=== PATIENT | female | born 1995 | race Caucasian/White ===

== ENCOUNTER 2018-09-21 19:15 | Inpatient (IN) | payer OTHER ==
[2018-09-21] MEDS: ELECTROLYTE-148 SOLN 1,000 ML IV SCH (19:30)
[2018-09-21 20:55] VITALS: BMI 37.4
[2018-09-21] MEDS ORDERED: TUBERCULIN PPD 5 TU/0.1ML SYRINGE (IN PATIENT USE ONLY) ID ONE (21:00)
[2018-09-21 21:11] LABS: BASO % 0.4 % (0-2.0); EOS % 1.3 % (0-4.5); HEMATOCRIT 35.9 % (32.4-45.2); HEMOGLOBIN 12.2 GM/dL (10.7-15.3); LYMPH % 22.5 % (8-40); MCHC 33.9 g/dl (32.0-36.0); MEAN CELL VOLUME 76.7 fl (80-96); MEAN PLT VOLUME 11.4 fl (7.5-11.1); MONO % 3.6 % (3.8-10.2); NEUT % 72.2 % (42.8-82.8); PLATELET COUNT 180 K/MM3 (134-434); RBC 4.67 M/mm3 (3.60-5.2); WHITE BLOOD COUNT 8.5 K/mm3 (4.0-10.0)
[2018-09-21 21:31] LABS: ANION GAP 11 MMOL/L (8-16); BLOOD UREA NITROGEN 6 mg/dL (7-18); CALCIUM 8.4 mg/dL (8.5-10.1); CHLORIDE 106 mmol/L (98-107); CO2 23 mmol/L (21-32); CREATININE 0.6 mg/dL (0.55-1.3); GLUCOSE,RANDOM 147 mg/dL (74-106); POTASSIUM 4.2 mmol/L (3.5-5.1); SODIUM 139 mmol/L (136-145)
[2018-09-21 21:33] LABS: PROTHROMBIN TIME (PATIENT) 11.8 SEC (9.7-13.0)
[2018-09-21 22:27] LABS: PLATELET ESTIMATE ADEQUATE
[2018-09-21] MEDS ORDERED: AZITHROMYCIN IVPB 1,000 MG in DEXTROSE 5%-WATER - 250 ML IVPB ONE (22:30)
--- NOTE | 2018-09-21 22:31 | HP ---
Past Medical History - Primary Care Physician PCP:: Everett Anthony - Admission Chief Complaint: 23yo P0 with at EGA 40w 0d with GDM o insulin, admitted for labor induction. History of Present Illness: GDM on insulin with good control Obesity Chlamydia (+) in 04/2018- treated. No test of cure available. History Source: Patient, Medical Record Limitations to Obtaining History: No Limitations - Past Medical History [employer]GER [employer] SERVICES: No: Alzheimer's, CVA, Dementia, Migraine, Multiple Sclerosis, Peripheral Neuropathy, Parkinson's, Seizure, Syncope, TIA, Vertigo, Other Cardiovascular: No: AFIB, Aneurysm, Aortic Insufficiency, Aortic Stenosis, CAD, CHF, Deep Vein Thrombosis, HTN, Hyperlipdemia, [place], Mitral Insufficiency, Mitral Stenosis, Murmur, Pulmonary Hypertension, Other Pulmonary: No: Asthma, Bronchitis, Cancer, COPD, O2 Dependent, Pneumonia, Previously Intubated, Pulmonary Embolus, Pulmonary Fibrosis, Sleep Apnea, Other Gastrointestinal: No: Ascites, Cancer, Constipation, Crohn's Disease, Diverticulitis, Diverticulosis, Esophageal Varices, Gastritis, GERD, GI Bleed, Hemorrhoids, Hiatal Hernia, Inflamatory Bowel Disease, Irritable Bowel Disease, Pancreatitis, Peptic Ulcer Disease, Ulcerative Colitis, Other Hepatobiliary: No: Cirrhosis, Cholelithiasis, Cholecystitis, Choledocholithiasis , Hepatitis A, Hepatitis B, Hepatitis C, Other Renal/: No: Renal Failure, Renal Inusuff, BPH, Cancer, Hematuria, Hemodialysis , Neurogenic Bladder, Renal Calculi, UTI, Other Reproductive: No: Ectopic , Endometriosis, Fibroids, PID, Polycystic Ovary Syndrome, Postmenopausal, Other ...: 1 ...Para: 0 ...Term: 0 ...: 0 ...Spon : 0 ...Induced : 0 ...Multiple Gestation: 0 ...LMP: 12/20/17 ... Weeks Gestation by Dates: 40.2 ...EDC by Dates: 09/26/18 ...EDC by Sono: 09/21/18 Heme/Onc: No: Anemia, B12 Deficiency, Bleeding Disorder, Cancer, Current Chemotherapy, Current Radiation Therapy, Hemochromatosis, Hypercoaguable State, Myeloproliferative Synd, Sickle Cell Disease, Sickle Cell Trait, Thrombocytopenia, Other Infectious Disease: Yes: Other (Hx of Chlamydia 04/2018) Psych: No: Addictions, Anxiety, Bipolar, Depression, Panic, Psychosis, Schizophrenia, Other Musculoskeletal: No: Bursitis, Chronic low back pain, Hemiparesis, Hemiplegia, Osteoarthritis, Paraplegia, Other ENT: No: Allergic Rhinitis, Sinusitis, Other Endocrine: No: Reagan's Disease, Fred's Disease, Diabetes Insipidus, Diabetes Mellitus, Hyperparathyroidism, Hyperthyroidism, Hypothyroidism, Osteopenia, SIADH, Other Dermatology: No: Basal Cell, Cellulitis, Eczema, Melanoma, Psoriasis, Squamous Cell, Other - Past Surgical History Past Surgical History: Yes: None Hx Myomectomy: No Hx Transabdominal Cerclage: No - Smoking History Smoking history: Never smoked Have you smoked in the past 12 months: No - Alcohol/Substance Use Hx Alcohol Use: No History of Substance Use: reports: None - Social History Usual Living Arrangement: Yes: With Significant Other ADL: Independent History of Recent Travel: No Home Medications - Allergies Allergies/Adverse Reactions: Allergies Allergy/AdvReac Type Severity Reaction Status Date / Time No Known Allergies Allergy Verified 05/17/15 04:05 - Home Medications Home Medications: Ambulatory Orders Ibuprofen [Motrin] 600 mg PO TID #20 tablet 05/17/15 Sulfamethoxazole/Trimethoprim [Bactrim *Ds*] 1 tab PO BID #14 tablet 05/17/15 Family Disease History - Family Disease History Family History: Unremarkable Review of Systems Findings/Remarks: Well appearing - Review of Systems Constitutional: reports: No Symptoms Eyes: reports: No Symptoms HENT: reports: No Symptoms Neck: reports: No Symptoms Cardiovascular: reports: No Symptoms Respiratory: reports: No Symptoms Gastrointestinal: reports: No Symptoms Genitourinary: reports: No Symptoms Breasts: reports: No Symptoms Reported Musculoskeletal: reports: No Symptoms Integumentary: reports: No Symptoms Neurological: reports: No Symptoms Endocrine: reports: No Symptoms Hematology/Lymphatic: reports: No Symptoms Psychiatric: reports: No Symptoms Pain Intensity: 0 Physical Exam - Maternity Vital Signs: Vital Signs Temperature 97.9 F 09/21/18 19:15 Pulse Rate 88 09/21/18 19:15 Respiratory Rate 20 09/21/18 19:15 Blood Pressure 119/78 09/21/18 19:15 O2 Sat by Pulse Oximetry (%) Constitutional: Yes: No Distress, Calm, Obese Eyes: Yes: WNL, Conjunctiva Clear HENT: Yes: WNL, Atraumatic, Normocephalic Neck: Yes: WNL, Supple, Trachea Midline Cardiovascular: Yes: WNL, Regular Rate and Rhythm Lungs: Clear to auscultation, Normal air movement - Abdominal Exam/OB Fundal Height: 40 Number of Fetuses: Single Presentation: Vertex Contractions: No Heart Rate (range): 140 Heart Rate Location: Midline Category: I Accelerations: Non-Uniform Decelerations: None - Vaginal Exam/OB Vaginal Bleediing: No Speculum Exam: Yes Dilatation (cm): 0 Effacement (%): 0 Amniotic Membrane Status: Intact Station: -4 (Adequate pelvimetry, EFW ~3200g by Marcell's maneuvers.) - Physical Exam Musculoskeletal: Yes: WNL Extremities: Yes: WNL Edema: Yes Edema: LLE: Trace, RLE: Trace Integumentary: Yes: Erythema Deep Tendon Reflex Grade: Normal +2 ...Motor Strength: WNL Psychiatric: Yes: WNL, Alert, Oriented - Labs Lab Results: CBC, BMP 09/21/18 20:45 09/21/18 20:45 Hemorrhage Risk Assessment - Risk Factors Medium Risk Factors: Yes: None High Risk Factors: Yes: None Risk Score: 1 Risk Level: Medium Risk Imaging - Results Ultrasound: Report Reviewed Assessment/Plan 23yo P0 with at EGA 40w2d admitted for labor induction. Pt is not in labor. Fetus with Category I tracing. Adequate gynecoid pelvimetry on exam. We had long discussion re: risks, benefits, and alternatives of labor induction. I explained the options of expectant management awaiting spontaneous labor, induction of labor, and elective section. The risks of uterine tachysystole, distress, uterine rupture, need for emergency C/S, hemorrhage, infection, scarring, etc. were discussed. We also discussed the risks of meconium aspiration, shoulder dystocia, and anesthesia options. The pt requested to proceed with induction. We discussed the alternative methods of induction with Cervidil, Cytotec, Folley ballon, and pitocin. The pt prefers Cervidil followed by pitocin, if needed. I also discussed that the pt has a prior Chlamydia infection but there is no [id number] on record. We discussed the risks of chlamydia infection and vertical transmission to the , infection with risks of blindness, pneumonia, etc. We also discussed the options of discharging the pt to go home and awaiting the results of GC test , the risks of post-term in the setting of GDM, including meconium, increased mortality, etc. I also offered an elective C/S and we discussed the risks of surgery. The pt declined a C/S and prefers to proceed with labor indx. I will treat the pt with Azithromycin 1 gram IVSS now.
[2018-09-21] MEDS ORDERED: DINOPROSTONE 10 MG VAGINAL SUPPOSITORY VG ONE (22:45)
[2018-09-22] MEDS ORDERED: OXYTOCIN 30 UNITS in 0.9% NS 30 UNIT/500 ML INFUS.BAG IVPB ONE (10:24)
[2018-09-22] MEDS: OXYTOCIN 30 UNITS in 0.9% NS 30 UNIT/500 ML INFUS.BAG IVPB SCH (10:30)
[2018-09-22] MEDS ORDERED: PROMETHAZINE HCL 25 MG/1 ML VIAL IVPUSH ONE (10:30)
[2018-09-22] MEDS ORDERED: BUTORPHANOL TARTRATE 1 MG/ML VIAL IVPUSH ONE (10:30)
[2018-09-22] MEDS: ELECTROLYTE-148 SOLN 1,000 ML IV SCH ×2 (11:00→20:35)
--- NOTE | 2018-09-22 14:40 | PN ---
Ante-Partal Exam - Subjective Subjective: Patient reports mild discomfort with contractions Declines offer for contraception Vital Signs: Vital Signs Temperature 97.4 F L 09/22/18 14:00 Pulse Rate 83 09/22/18 14:00 Respiratory Rate 20 09/22/18 14:00 Blood Pressure 120/75 09/22/18 14:00 O2 Sat by Pulse Oximetry (%) Bleeding: No Headache: No Visual changes: No Right upper quadrant pain: No - Contractions Contractions: Yes Regularity: Regular Intensity: Moderate Monitor Mode: External - Exam during Labor Category: I Monitor Decelerations: None Exam: Vaginal Dilatation (cm): 2 Effacement (%): 20 Amniotic Membrane Status: Intact Presentation: Vertex Station: -4 - Intrapartum Hemorrhage Risk Medium Risk Factors: None High Risk Factors: None Risk Score: 0 Risk Level: Low Risk - Assessment/Plan Assessment/Plan: 23 yo IOL gDMA 1. Good cervical change Will continue pitocin on protocol 2. GBS negative 3. Will offer pain medication upon request 4. Will proceed with expectant management
--- NOTE | 2018-09-22 21:08 | PN ---
Ante-Partal Exam - Subjective Subjective: patient comfortable, without complaints Vital Signs: Vital Signs Temperature 97.9 F 09/22/18 18:00 Pulse Rate 77 09/22/18 18:00 Respiratory Rate 20 09/22/18 18:00 Blood Pressure 125/78 09/22/18 18:00 O2 Sat by Pulse Oximetry (%) Bleeding: No Headache: No Visual changes: No Right upper quadrant pain: No - Contractions Contractions: Yes Regularity: Regular Intensity: Mild/Mod Monitor Mode: External - Exam during Labor Heart Rate: 130 Variability: Moderate Category: I Monitor Accelerations: Present Monitor Decelerations: None Exam: Vaginal Dilatation (cm): 3 Effacement (%): 40 Amniotic Membrane Status: Ruptured Amniotic Fluid: Clear Presentation: Vertex Station: -3 - Intrapartum Hemorrhage Risk Medium Risk Factors: None High Risk Factors: None Risk Score: 0 Risk Level: Low Risk - Assessment/Plan Assessment/Plan: 23 yo IOL for GDM 1. Good cervical change, will continue pitocin per protocol 2. GBS negative 3. Will offer pain control upon request 4. Will proceed with expectant management
[2018-09-23] MEDS: ELECTROLYTE-148 SOLN 1,000 ML IV SCH (05:30)
--- NOTE | 2018-09-23 07:35 | PN ---
Ante-Partal Exam - Subjective Subjective: Patient reports mild back pain with contractions Vital Signs: Vital Signs Temperature 97.5 F L 09/23/18 07:00 Pulse Rate 94 H 09/23/18 07:00 Respiratory Rate 18 09/23/18 07:00 Blood Pressure 133/91 09/23/18 07:00 O2 Sat by Pulse Oximetry (%) Bleeding: No Headache: No Visual changes: No Right upper quadrant pain: No - Contractions Contractions: Yes Regularity: Regular Intensity: Mild/Mod Monitor Mode: External - Exam during Labor Heart Rate: 130 Category: I Monitor Accelerations: Present Monitor Decelerations: None Exam: Vaginal Dilatation (cm): 4 Effacement (%): 50 Amniotic Membrane Status: Ruptured Amniotic Fluid: Clear Presentation: Vertex Station: -2 - Intrapartum Hemorrhage Risk Medium Risk Factors: None High Risk Factors: None Risk Score: 0 Risk Level: Low Risk - Assessment/Plan Assessment/Plan: 23 yo IOL for GDM 1. Good cervical change; pitocin at 6 2. FHT category I 3. GBS neg 4. WIll offer pain medication upon request 5. Will proceed with expectant management
[2018-09-23] MEDS: OXYTOCIN 30 UNITS in 0.9% NS 30 UNIT/500 ML INFUS.BAG IVPB SCH (09:37)
--- NOTE | 2018-09-23 10:55 | PN ---
Ante-Partal Exam - Subjective Subjective: Pt w/o complaints. Vital Signs: Vital Signs Temperature 97.8 F 09/23/18 10:00 Pulse Rate 90 09/23/18 10:00 Respiratory Rate 18 09/23/18 10:00 Blood Pressure 135/85 09/23/18 10:00 O2 Sat by Pulse Oximetry (%) Bleeding: No Headache: No Visual changes: No Right upper quadrant pain: No Pain (scale 1-10): 4 - Contractions Contractions: Yes Regularity: Regular Intensity: Mod/Strong (adequate- IUPC in place) Monitor Mode: External - Exam during Labor Heart Rate: 140 Variability: Moderate Heart Rate Location: Midline Category: I Monitor Accelerations: Present Monitor Decelerations: None Exam: Vaginal Dilatation (cm): 3 Effacement (%): 50 Amniotic Membrane Status: Leaking Amniotic Fluid: Clear Presentation: Vertex Station: -3 - Intrapartum Hemorrhage Risk Medium Risk Factors: Prolonged Oxytocin Use >24hrs High Risk Factors: None Risk Score: 1 Risk Level: Medium Risk - Assessment/Plan Assessment/Plan: 23yo P0 with at EGA 40w2d admitted for labor induction due to post- term with GDM A2. Fetus with Category I tracing. Patient has made no cervical change since the last exam. We discussed the tx options, including continue labor induction or C/S. The pt prefers to wait and be re-examined before deciding.
[2018-09-23] MEDS ORDERED: CITRIC ACID/SODIUM CITRATE 30 ML UNIT-DOSE CUP PO ONE (11:30)
--- NOTE | 2018-09-23 11:52 | PN ---
Ante-Partal Exam - Subjective Subjective: No complaints Vital Signs: Vital Signs Temperature 97.8 F 09/23/18 10:00 Pulse Rate 90 09/23/18 10:00 Respiratory Rate 18 09/23/18 10:00 Blood Pressure 135/85 09/23/18 10:00 O2 Sat by Pulse Oximetry (%) Bleeding: No Headache: No Visual changes: No Right upper quadrant pain: No Pain (scale 1-10): 5 - Contractions Contractions: Yes Regularity: Irregular Intensity: Mod/Strong Monitor Mode: External - Exam during Labor Heart Rate: 140 Variability: Moderate Heart Rate Location: Midline Category: II Monitor Accelerations: Absent Monitor Decelerations: Variable (occasional) Exam: Vaginal Dilatation (cm): 3 Effacement (%): 50 Amniotic Membrane Status: Leaking Amniotic Fluid: Clear Presentation: Vertex Station: -3 - Intrapartum Hemorrhage Risk Medium Risk Factors: None High Risk Factors: None Risk Score: 0 Risk Level: Low Risk - Assessment/Plan Assessment/Plan: No cervical change. Category II tracing. Plan to proceed with C/S delivery. We discussed the risks and benefits of C/S at length, including but not limited to scarring, pain, bleeding, infection, injury to underlying organs and structures, need for additional surgery to repair/treat any problems or complications, complications/injuries, etc. The pt verbalized her understanding and requested to proceed with surgery. The pt is aware that all surgeries have risks and no guarantees can be provided.
[2018-09-23] MEDS ORDERED: PHENYLEPHRINE HCL 10 MG/1 ML SINGLE DOSE VIAL ONE (12:04)
[2018-09-23] MEDS ORDERED: morphine SULFATE/Preservative Free 0.5 MG/ML (1cc Syringe) ONE (12:04)
[2018-09-23] MEDS ORDERED: ceFAZolin SODIUM 1 GM VIAL ONE ×3 (12:04→17:33)
[2018-09-23] MEDS ORDERED: ONDANSETRON 4 MG/2 ML VIAL IVPUSH PRN (12:11)
[2018-09-23 13:23] LABS: ARTERIAL BLOOD GAS BASE EXCESS -1.1 meq/l (-2-2); ARTERIAL BLOOD GAS PCO2 56.8 mmHg (35-45); ARTERIAL BLOOD GAS PO2 19.3 mmHg (80-100); ARTERIAL BLOOD GAS pH 7.29 (7.35-7.45)
[2018-09-23] MEDS ORDERED: OXYTOCIN 10 UNITS/ML VIAL ONE ×2 (13:39)
[2018-09-23 13:42] LABS: VENOUS PC02 48.3 mmHg (38-52); VENOUS PH 7.34 (7.32-7.42); VENOUS PO2 21.9 mmHg (28-48)
[2018-09-23] MEDS ORDERED: METHYLERGONOVINE MALEATE 0.2 MG/1 ML AMP IM PRN (13:47)
[2018-09-23] MEDS ORDERED: WITCH HAZEL 50% (TUCKS) 40 PAD/JAR PAD TP PRN (13:47)
[2018-09-23] MEDS ORDERED: IBUPROFEN 600 MG TABLET (FP) PO PRN (13:47)
[2018-09-23] MEDS ORDERED: IBUPROFEN 800 MG/8 ML IJ IVPB PRN (13:47)
[2018-09-23] MEDS ORDERED: BENZOCAINE 28 GM HEMORRHOIDAL OINTMENT TP PRN (13:47)
[2018-09-23] MEDS ORDERED: BENZOCAINE 20% 57 GM BOTTLE TP PRN (13:47)
--- NOTE | 2018-09-23 13:54 | OP ---
Operative Note - Note: Operative Date: 09/23/18 Pre-Operative Diagnosis: at EGA 40w2d. GDM A2. Arrest of dilation in labor Operation: Primary LT C/S Findings: Live baby boy in vtx presentation, nuchal cord x 2, no meconium, 9/9, normal uterus/tubes/ovaries Post-Operative Diagnosis: Same as Pre-op Surgeon: Everett Anthony Desk Assistant: Marjorie Grey Anesthesiologist/VASCULAR TECHNICIAN: Magdi Gilmore Anesthesia: Spinal Specimens Removed: Placenta Estimated Blood Loss (mls): 500 Drains & Tubes with Location: [place] cath Drains, Volume Out (mls): 100 Blood Volume Replaced (mls): 0 Fluid Volume Replaced (mls): 1,500 Operative Report Dictated: Yes
[2018-09-23] MEDS ORDERED: OXYTOCIN 20 UNITS in 0.9% NS 20 UNIT/1,000 ML INFUS.BAG IV SCH (14:00)
[2018-09-23] MEDS ORDERED: OXYTOCIN 20 UNITS in 0.9% NS 20 UNIT/1,000 ML INFUS.BAG IV ONE (14:54)
[2018-09-23] MEDS ORDERED: DEXTROSE 5%-WATER - 50 ML IVPB ONE (17:33)
[2018-09-23] MEDS: CEFAZOLIN 1 GM in DEXTROSE 5%-WATER - 50 ML IVPB SCH (17:55)
[2018-09-24] MEDS ORDERED: ceFAZolin SODIUM 1 GM VIAL ONE (01:08)
[2018-09-24] MEDS ORDERED: DEXTROSE 5%-WATER - 50 ML IVPB ONE (01:08)
[2018-09-24] MEDS: CEFAZOLIN 1 GM in DEXTROSE 5%-WATER - 50 ML IVPB SCH ×2 (02:07→10:17)
[2018-09-24] MEDS: SIMETHICONE 80 MG TAB.CHEW (FP) PO PRN ×3 (03:56→21:41)
[2018-09-24] MEDS: ACETAMINOPHEN 325 MG TABLET (FP) PO PRN ×4 (03:57→17:02)
[2018-09-24] MEDS: IBUPROFEN 600 MG TABLET (FP) PO PRN ×3 (03:57→21:43)
[2018-09-24 08:05] LABS: BASO % 0.4 % (0-2.0); EOS % 0.7 % (0-4.5); HEMATOCRIT 36.3 % (32.4-45.2); HEMOGLOBIN 12.4 GM/dL (10.7-15.3); LYMPH % 22.1 % (8-40); MCH 26.3 pg (25.7-33.7); MCHC 34.2 g/dl (32.0-36.0); MEAN CELL VOLUME 76.8 fl (80-96); MONO % 5.2 % (3.8-10.2); NEUT % 71.6 % (42.8-82.8); PLATELET COUNT 164 K/MM3 (134-434); RBC 4.72 M/mm3 (3.60-5.2); RDW 16.9 % (11.6-15.6); WHITE BLOOD COUNT 10.5 K/mm3 (4.0-10.0)
--- NOTE | 2018-09-24 08:09 | PN ---
Post Progress Note - Subjective Subjective: No complaints Post Day: 1 Type of Delivery: Primary C/S Vital Signs: Vital Signs Temperature 97.8 F 09/24/18 06:00 Pulse Rate 71 09/24/18 06:00 Respiratory Rate 18 09/24/18 06:00 Blood Pressure 128/55 L 09/24/18 06:00 O2 Sat by Pulse Oximetry (%) 100 09/23/18 21:00 Breast Exam: Yes: Soft Uterus: Yes: Fundus Firm, Fundus below umbilicus, Non-tender Incision: Yes: Dressing dry and intact Abdomen/GI: Yes: Abdomen soft, Passing flatus, Tolerating PO Lochia: Yes: Rubra Lochia, amount: Small Extremities: Yes: Calves non-tender, Edema (trace) Perineum: Yes: Intact Activity: Ambulating - Labs Labs: CBC WBC 8.5 K/mm3 (4.0-10.0) 09/21/18 20:45 RBC 4.67 M/mm3 (3.60-5.2) 09/21/18 20:45 Hgb 12.2 GM/dL (10.7-15.3) 09/21/18 20:45 Hct 35.9 % (32.4-45.2) 09/21/18 20:45 MCV 76.7 fl (80-96) L 09/21/18 20:45 MCH 26.0 pg (25.7-33.7) 09/21/18 20:45 MCHC 33.9 g/dl (32.0-36.0) 09/21/18 20:45 RDW 17.0 % (11.6-15.6) H 09/21/18 20:45 Plt Count 180 K/MM3 (134-434) 09/21/18 20:45 MPV 11.4 fl (7.5-11.1) H D 09/21/18 20:45 Absolute Neuts (auto) 6.2 K/mm3 (1.5-8.0) 09/21/18 20:45 Neutrophils % 72.2 % (42.8-82.8) D 09/21/18 20:45 Lymphocytes % 22.5 % (8-40) D 09/21/18 20:45 Monocytes % 3.6 % (3.8-10.2) L 09/21/18 20:45 Eosinophils % 1.3 % (0-4.5) 09/21/18 20:45 Basophils % 0.4 % (0-2.0) 09/21/18 20:45 Nucleated RBC % 0 % (0-0) 09/21/18 20:45 Platelet Estimate Adequate 09/21/18 20:45 Platelet Comment 09/21/18 20:45 Assessment/Plan 23yo P1 s/p , doing well stable, afebrile. care instructions reviewed. Continue routine care. Ambulation encouraged Discharge instruction reviewed.
[2018-09-24] MEDS: PRENATAL VITAMINS W/ FOLIC ACID TABLET (FP) PO SCH (10:00)
[2018-09-24] MEDS ORDERED: DIPHTH,PERTUSS(ACELL),TET 0.5 ML DISP.SYRIN IM ONE (10:00)
[2018-09-24] MEDS: oxyCODONE HCL 5 MG TABLET PO PRN ×3 (11:08→21:41)
[2018-09-24] MEDS: ENOXAPARIN NA (PORCINE) 40 MG/0.4 ML DISP.SYRIN SQ SCH (11:10)
[2018-09-24] MEDS ORDERED: BISACODYL 10 MG SUPP.RECT RC PRN (13:47)
[2018-09-24] MEDS: SENNOSIDES/DOCUSATE COMBO (SENNA PLUS) TABLET (UD) PO PRN (21:43)
[2018-09-25] MEDS: SIMETHICONE 80 MG TAB.CHEW (FP) PO PRN ×3 (04:43→19:34)
[2018-09-25] MEDS: oxyCODONE HCL 5 MG TABLET PO PRN ×3 (04:43→19:35)
[2018-09-25] MEDS: IBUPROFEN 600 MG TABLET (FP) PO PRN ×3 (04:46→19:36)
[2018-09-25] MEDS: PRENATAL VITAMINS W/ FOLIC ACID TABLET (FP) PO SCH (10:41)
[2018-09-25] MEDS: ENOXAPARIN NA (PORCINE) 40 MG/0.4 ML DISP.SYRIN SQ SCH (10:41)
[2018-09-25] MEDS: SENNOSIDES/DOCUSATE COMBO (SENNA PLUS) TABLET (UD) PO PRN (19:34)
--- NOTE | 2018-09-25 19:42 | PN ---
Post Progress Note - Subjective Subjective: No complaints Post Day: 2 Type of Delivery: Primary C/S Vital Signs: Vital Signs Temperature 98.3 F 09/25/18 09:31 Pulse Rate 88 09/25/18 09:31 Respiratory Rate 20 09/25/18 09:31 Blood Pressure 137/78 09/25/18 09:31 O2 Sat by Pulse Oximetry (%) 100 09/23/18 21:00 Breast Exam: Yes: Soft Uterus: Yes: Fundus Firm Incision: Yes: Sutures intact Abdomen/GI: Yes: Abdomen soft, Tolerating PO Lochia: Yes: Rubra Lochia, amount: Small Extremities: Yes: Calves non-tender Perineum: Yes: Intact Activity: Ambulating - Labs Labs: CBC WBC 10.5 K/mm3 (4.0-10.0) H 09/24/18 07:15 RBC 4.72 M/mm3 (3.60-5.2) 09/24/18 07:15 Hgb 12.4 GM/dL (10.7-15.3) 09/24/18 07:15 Hct 36.3 % (32.4-45.2) 09/24/18 07:15 MCV 76.8 fl (80-96) L 09/24/18 07:15 MCH 26.3 pg (25.7-33.7) 09/24/18 07:15 MCHC 34.2 g/dl (32.0-36.0) 09/24/18 07:15 RDW 16.9 % (11.6-15.6) H 09/24/18 07:15 Plt Count 164 K/MM3 (134-434) 09/24/18 07:15 MPV 11.0 fl (7.5-11.1) 09/24/18 07:15 Absolute Neuts (auto) 7.5 K/mm3 (1.5-8.0) 09/24/18 07:15 Neutrophils % 71.6 % (42.8-82.8) 09/24/18 07:15 Lymphocytes % 22.1 % (8-40) 09/24/18 07:15 Monocytes % 5.2 % (3.8-10.2) 09/24/18 07:15 Eosinophils % 0.7 % (0-4.5) 09/24/18 07:15 Basophils % 0.4 % (0-2.0) 09/24/18 07:15 Nucleated RBC % 0 % (0-0) 09/24/18 07:15 Platelet Estimate Adequate 09/21/18 20:45 Platelet Comment 09/21/18 20:45 Assessment/Plan 23yo P1 s/p primary LT C/S, doing well stable, afebrile. Postop and care instructions reviewed. Continue routine care. Ambulation encouraged
[2018-09-26] MEDS: SIMETHICONE 80 MG TAB.CHEW (FP) PO PRN ×3 (07:55→21:04)
[2018-09-26] MEDS: IBUPROFEN 600 MG TABLET (FP) PO PRN ×3 (07:55→21:05)
[2018-09-26] MEDS: oxyCODONE HCL 5 MG TABLET PO PRN (07:55)
[2018-09-26 08:16] LABS: BASO % 0.6 % (0-2.0); EOS % 3.4 % (0-4.5); HEMATOCRIT 37.9 % (32.4-45.2); HEMOGLOBIN 12.1 GM/dL (10.7-15.3); MCH 24.8 pg (25.7-33.7); MEAN CELL VOLUME 77.5 fl (80-96); MEAN PLT VOLUME 10.6 fl (7.5-11.1); MONO % 4.3 % (3.8-10.2); NEUT % 69.7 % (42.8-82.8); PLATELET COUNT 207 K/MM3 (134-434); RBC 4.89 M/mm3 (3.60-5.2); RDW 17.4 % (11.6-15.6); WHITE BLOOD COUNT 10.1 K/mm3 (4.0-10.0)
[2018-09-26] MEDS: ENOXAPARIN NA (PORCINE) 40 MG/0.4 ML DISP.SYRIN SQ SCH (09:25)
[2018-09-26] MEDS: PRENATAL VITAMINS W/ FOLIC ACID TABLET (FP) PO SCH (09:25)
--- NOTE | 2018-09-26 13:31 | PN ---
Post Progress Note - Subjective Subjective: No complaints Post Day: 3 Type of Delivery: Primary C/S Vital Signs: Vital Signs Temperature 98.5 F 09/26/18 09:39 Pulse Rate 79 09/26/18 09:39 Respiratory Rate 20 09/26/18 09:39 Blood Pressure 139/81 09/26/18 09:39 O2 Sat by Pulse Oximetry (%) 100 09/23/18 21:00 Breast Exam: Yes: Soft Uterus: Yes: Fundus Firm, Fundus below umbilicus, Non-tender Incision: Yes: Sutures intact Abdomen/GI: Yes: Abdomen soft, Tolerating PO Lochia: Yes: Rubra Lochia, amount: Small Extremities: Yes: Calves non-tender Perineum: Yes: Intact Activity: Ambulating - Labs Labs: CBC WBC 10.1 K/mm3 (4.0-10.0) H 09/26/18 07:00 RBC 4.89 M/mm3 (3.60-5.2) 09/26/18 07:00 Hgb 12.1 GM/dL (10.7-15.3) 09/26/18 07:00 Hct 37.9 % (32.4-45.2) 09/26/18 07:00 MCV 77.5 fl (80-96) L 09/26/18 07:00 MCH 24.8 pg (25.7-33.7) L 09/26/18 07:00 MCHC 32.0 g/dl (32.0-36.0) 09/26/18 07:00 RDW 17.4 % (11.6-15.6) H 09/26/18 07:00 Plt Count 207 K/MM3 (134-434) D 09/26/18 07:00 MPV 10.6 fl (7.5-11.1) 09/26/18 07:00 Absolute Neuts (auto) 7.1 K/mm3 (1.5-8.0) 09/26/18 07:00 Neutrophils % 69.7 % (42.8-82.8) 09/26/18 07:00 Lymphocytes % 22.0 % (8-40) 09/26/18 07:00 Monocytes % 4.3 % (3.8-10.2) 09/26/18 07:00 Eosinophils % 3.4 % (0-4.5) D 09/26/18 07:00 Basophils % 0.6 % (0-2.0) 09/26/18 07:00 Nucleated RBC % 0 % (0-0) 09/26/18 07:00 Platelet Estimate Adequate 09/21/18 20:45 Platelet Comment 09/21/18 20:45 Assessment/Plan 23yo P1 s/p primary LT C/S, doing well stable, afebrile. Postop and care instructions reviewed. Continue routine care. Ambulation encouraged
[2018-09-26] MEDS: ACETAMINOPHEN 325 MG TABLET (FP) PO PRN ×2 (14:17→21:04)
[2018-09-26] MEDS: SENNOSIDES/DOCUSATE COMBO (SENNA PLUS) TABLET (UD) PO PRN (21:04)
[2018-09-27] MEDS: ACETAMINOPHEN 325 MG TABLET (FP) PO PRN (07:39)
[2018-09-27 08:26] VITALS: BP 125/84; PULSE 72; TEMP 97.8
[2018-09-27] MEDS: PRENATAL VITAMINS W/ FOLIC ACID TABLET (FP) PO SCH (10:20)
[2018-09-27] MEDS: ENOXAPARIN NA (PORCINE) 40 MG/0.4 ML DISP.SYRIN SQ SCH (10:21)
--- NOTE | 2018-09-27 15:13 | PATH ---
Surgical Pathology Report Patient Name: LULA ESCOBEDO Med. Rec. #: [id number] /Age/Gender: 1995 (Age: 23) / F Account: [id number] Location: [facility] Taken: 09/23/2018 Received: 09/24/2018 Reported: 09/27/2018 Physicians: Everett Anthony M.D. Specimen(s) Received PLACENTA Clinical History , 39.4 weeks Gestational diabetic-insulin controlled Final Diagnosis PLACENTA, SECTION: 588 G THIRD TRIMESTER PLACENTA WITH TRIVASCULAR UMBILICAL CORD AND UNREMARKABLE PLACENTAL MEMBRANES. Electronically Signed Hollie Martinez M.D. Gross Description The specimen is received fresh labeled placenta and is a 588 gram, 19.5 x 16.5 x 2.7 cm. placenta with attached membranes and umbilical cord. The attached membranes are morales, translucent with focal opacities and insert marginally. The umbilical cord measures 17 cm. in length and averages 1.0 cm. in diameter. The cord inserts eccentrically, 3 cm. to the nearest margin. No true knots or strictures are identified. Cut surface of the umbilical cord reveals 3 vessels. The surface is gutierrez-blue with minimal fibrin deposition and appropriate caliber vessels. The maternal surface is red-brown with focal defects. Sectioning reveals red-brown, spongy parenchyma. No lesions are identified. Lining Finisher sections are submitted in three cassettes as follows: 1- membrane rolls and umbilical cord; 2-3- full thickness sections of placenta. 09/24/2018 saudi09/24/2018
== END 2018-09-27 12:20 | disposition home or self-care (01) | DRG 540 ==
LOC: JLDR 19:15 → J3W 09-23 14:25
PROVIDERS: ADMIT Obstetrics & Gynecology; ATTEND Obstetrics & Gynecology
PROC: 10D00Z1 Extraction of Products of Conception, Low, Open Approach (ICD-10-PCS; principal; 2018-09-23)
DX: O48.0 Post-term pregnancy (principal); O24.429 Gestational diabetes mellitus in childbirth, unspecified control; O62.0 Primary inadequate contractions; Z37.0 Single live birth; Z3A.40 40 weeks gestation of pregnancy
CPT/HCPCS: 36415; 36600; 80048; 82803; 82962; 85025; 85610; 85730; 86593; 86850; 86900; 86901; 87110; 87389; 88307-TC; 90715

== ENCOUNTER 2023-03-24 17:30 | Inpatient (IN) | payer BC, OTHER ==
[~2023-03-24 17:30] MED LIST: ELECTROLYTE-148 SOLN 1,000 ML IV SCH
[2023-03-24 18:26] VITALS: BMI 37.5
[2023-03-24 18:41] LABS: BASO % 0.4 % (0-2.0); EOS % 0.9 % (0-4.5); HEMATOCRIT 37.2 % (32.4-45.2); HEMOGLOBIN 12.3 GM/dL (10.7-15.3); MCH 25.1 pg (25.7-33.7); MEAN CELL VOLUME 76.2 fl (80-96); MEAN PLT VOLUME 10.3 fl (7.5-11.1); MONO % 5.8 % (3.8-10.2); NEUT % 70.9 % (42.8-82.8); PLATELET COUNT 199 10^3/uL (134-434); RBC 4.88 M/mm3 (3.60-5.2); RDW 16.1 % (11.6-15.6); WHITE BLOOD COUNT 10.2 K/mm3 (4.0-10.0)
[2023-03-24 19:09] LABS: BLOOD UREA NITROGEN 7.7 mg/dL (7-18); CALCIUM 8.8 mg/dL (8.5-10.1)
[2023-03-24 19:12] LABS: CREATININE 0.3 mg/dL (0.55-1.3)
[2023-03-24 19:27] LABS: ACTIVATED PTT 31.4 SECONDS (25.2-36.5); INR 1.02 (0.83-1.09); PROTHROMBIN TIME (PATIENT) 11.8 SEC (9.7-13.0)
[2023-03-24 20:02] LABS: HIV INTERPRETATION NEGATIVE (NEGATIVE)
[2023-03-24] MEDS ORDERED: FENTANYL CITRATE/PF 50 MCG/ML VIAL ONE (22:50)
[2023-03-24] MEDS ORDERED: ACETAMINOPHEN 325 MG TABLET (FP) PO PRN (22:58)
[2023-03-24] MEDS ORDERED: METHYLERGONOVINE MALEATE 0.2 MG/1 ML AMP IM PRN (22:58)
[2023-03-24] MEDS ORDERED: CITRIC ACID/SODIUM CITRATE 30 ML UNIT-DOSE CUP PO ONE (23:03)
[2023-03-25 01:41] LABS: CORD BASE EXCESS -2.2 mmol/L (0-2); CORD HCO3 25.2 mmHg (20-29); CORD PCO2 52.2 mmHg (30-78); CORD pH 7.302 (7.14-7.44)
[2023-03-25 01:42] LABS: CORD BASE EXCESS -1.2 mmol/L (0-2); CORD HCO3 26.3 mmHg (20-29); CORD PCO2 53.3 mmHg (30-78); CORD pH 7.311 (7.14-7.44)
[2023-03-25] MEDS ORDERED: OXYTOCIN 20 UNITS in 0.9% NS 20 UNIT/1,000 ML INFUS.BAG IV ONE (01:54)
[2023-03-25] MEDS: OXYTOCIN 20 UNITS in 0.9% NS 20 UNIT/1,000 ML INFUS.BAG IV SCH (02:00)
[2023-03-25] MEDS: CEFAZOLIN 1 GM in DEXTROSE 5%-WATER - 50 ML IVPB SCH ×3 (02:39→17:59)
[2023-03-25 08:15] LABS: BASO % 0.3 % (0-2.0); EOS % 0.2 % (0-4.5); HEMATOCRIT 31.7 % (32.4-45.2); HEMOGLOBIN 10.8 GM/dL (10.7-15.3); LYMPH % 20.5 % (8-40); MCHC 34.1 g/dl (32.0-36.0); MEAN CELL VOLUME 76.3 fl (80-96); MEAN PLT VOLUME 11.1 fl (7.5-11.1); MONO % 4.3 % (3.8-10.2); NEUT % 74.7 % (42.8-82.8); PLATELET COUNT 152 10^3/uL (134-434); RBC 4.15 M/mm3 (3.60-5.2); RDW 15.8 % (11.6-15.6); WHITE BLOOD COUNT 11.7 K/mm3 (4.0-10.0)
[2023-03-25] MEDS ORDERED: oxyCODONE HCL 5 MG TABLET PO PRN (10:59)
[2023-03-25] MEDS: IBUPROFEN 600 MG TABLET (FP) PO PRN (14:54)
[2023-03-25] MEDS: SIMETHICONE 80 MG TAB.CHEW (FP) PO PRN (22:39)
[2023-03-25] MEDS ORDERED: BISACODYL 10 MG SUPP.RECT RC PRN (22:59)
[2023-03-26] MEDS: ELECTROLYTE-148 SOLN 1,000 ML IV SCH (00:30)
[2023-03-26] MEDS: OXYTOCIN 20 UNITS in 0.9% NS 20 UNIT/1,000 ML INFUS.BAG IV SCH (00:31)
[2023-03-26] MEDS: SIMETHICONE 80 MG TAB.CHEW (FP) PO PRN ×3 (08:18→20:09)
[2023-03-26] MEDS: IBUPROFEN 600 MG TABLET (FP) PO PRN ×3 (08:18→19:02)
[2023-03-26] MEDS ORDERED: ENOXAPARIN NA (PORCINE) 40 MG/0.4 ML DISP.SYRIN SQ ONE (10:00)
[2023-03-26 22:55] VITALS: PULSE 85
[2023-03-27] MEDS: IBUPROFEN 600 MG TABLET (FP) PO PRN ×2 (00:16→09:36)
[2023-03-27] MEDS: SIMETHICONE 80 MG TAB.CHEW (FP) PO PRN ×2 (00:16→09:36)
[2023-03-27 08:05] LABS: BASO % 0.7 % (0-2.0); EOS % 2.4 % (0-4.5); HEMATOCRIT 33.2 % (32.4-45.2); HEMOGLOBIN 11.2 GM/dL (10.7-15.3); LYMPH % 21.6 % (8-40); MCH 25.9 pg (25.7-33.7); MCHC 33.6 g/dl (32.0-36.0); MONO % 5.1 % (3.8-10.2); NEUT % 70.2 % (42.8-82.8); PLATELET COUNT 173 10^3/uL (134-434); RBC 4.31 M/mm3 (3.60-5.2); WHITE BLOOD COUNT 9.4 K/mm3 (4.0-10.0)
[2023-03-27 11:17] VITALS: BP 128/82; RESP 18; TEMP 97.5
== END 2023-03-27 14:15 | disposition home or self-care (01) | DRG 788 ==
LOC: JLDR 17:30 → J3W 03-25 03:24
PROVIDERS: ADMIT Obstetrics & Gynecology; ATTEND Obstetrics & Gynecology
PROC: 10D00Z1 Extraction of Products of Conception, Low, Open Approach (ICD-10-PCS; principal; 2023-03-24)
DX: O34.211 Maternal care for low transverse scar from previous cesarean delivery (principal); O76 Abnormality in fetal heart rate and rhythm complicating labor and delivery; O24.424 Gestational diabetes mellitus in childbirth, insulin controlled; O99.214 Obesity complicating childbirth; E66.01 Morbid (severe) obesity due to excess calories; Z3A.40 40 weeks gestation of pregnancy; Z37.0 Single live birth
CPT/HCPCS: 36415; 36600; 80048; 82803; 85025; 85610; 85730; 86780; 86850; 86900; 86901; 87389; 88307-TC; 94010; C9803-CS; U0003; U0005